=== PATIENT | female | born 1980 | race Caucasian/White ===

== ENCOUNTER 2025-04-20 09:22 | Outpatient (AMB) | payer BC, SELFPAY ==
--- NOTE | 2025-04-20 09:27 | MHC.OFFVIS ---
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 Aura included blurred vision, dizziness, nausea, and fogginess of mind. Pain used to be one sided or stabbing type but now it was all around the head like a pressure, 7-8/10, associated with dizziness and nausea. She is presenting with concerns regarding her medication management for peripheral neuropathy and the efficacy of her current treatment regimen. She reports sensory symptoms characterized by cold sensations and tingling in her extremities, which persisted even after adjusting to a lower medication dose. She has decided to take a break from the medication due to these side effects. Her headaches, which occur periodically, have become less frequent, with only two episodes reported in the last month. Effective management with sumatriptan has been noted, and she currently does not express an urgent need for an alternative headache treatment. The issues with her sumatriptan refill at the pharmacy have been addressed, and we will ensure the prescription is resent. She will continue with her existing treatment plan and is scheduled for a follow-up in six months, ensuring ongoing management of her conditions. [facility] Medical History (Updated 04/20/25 @ 09:31 by Hayden Nolasco MD) Migraine without aura Review of Systems Const Details: - Neurological: Reports tingling and cold sensations in fingers and toes; Reports headache; Denies additional neurological symptoms - General: Discussed prescriptions and pharmacy refill issues Physical Exam Neuro Other: Mental Status: Alert and oriented to person, place, and time. Normal attention. Normal spontaneous speech, fluency, and comprehension. No obvious issues with mood and memory. Affect is appropriate. Cranial Nerves: CN II: Visual melchor full to confrontation, visual acuity intact. CN III, IV, : Pupils equal, round, reactive to light and accommodation. Extraocular movements are normal. CN V: Facial sensation is normal. CN VII: Facial movements symmetrical. CN VIII: Hearing intact to bedside conversation is normal. CN IX, X: Palate elevates symmetrically. CN XI: Shoulder shrug and head turn symmetrical. CN XII: Tongue midline without atrophy or fasciculations. Extrapyramidal: Full facial expressions and blinking. No rigidity. Movements are appropriate with no tremor or abnormality. Speech: Normal; no dysarthria or tremor. Assessment & Plan Assessment & Plan (1) Migraine with aura, not intractable, without status migrainosus: Comment: Meds tried: Topiramate (side effects), propranolol (side effects), sumatriptan, Verapamil (side effects), amitryptiline Code(s): G43.109 - Migraine with aura, not intractable, without status migrainosus Category: Medical Plan Impression: Medications: Changed From sumatriptan succinate take 1 tab at onset of headache; if no relief may repeat 1 tab after at least 2 hrs; max = 4 tabs/24 hr PO To sumatriptan succinate 50 mg orally one a day as needed; 10 tabs 5RF 30 days Coding Level of Care Code Est Pt Level 4 (53272) Diagnoses Migraine with aura, not intractable, without status migrainosus G43.109
--- OUTSIDE RECORDS SUMMARY | 2025-04-20 10:05 | XMS_ITS | Clinical Summary ---
Author Organization [facility] Address [address] [address] Phone Care Team Providers Care [employer]sembler Name Role Phone Park Burk MD Primary Care Provider [phone] Allergies Active Allergy Reactions Criticality Noted Date Comments Fentanyl Anxiety,Fatigue,Feel ing Irritable,GI Upset,Hypotension,Mental Status Change,Nausea and/or Vomiting Low 05/08/2022 Pollen Extracts Fatigue,Headaches,Sneezing Low 03/2022 Medications cetirizine 10 mg/mL Soln 05/21/20 21 Active clobetasol (CLOBEX) 0.05 % shampoo Apply topically every other day. 03/01/20 22 Active TRULICITY 0.75 mg/0.5 mL subcutaneous injection INJECT 1 PEN SUBCUTANEOUSLY ONCE A WEEK DIRECTED 02/16/20 22 Active finasteride (PROSCAR) 5 mg tablet 03/15/20 20 Active lisinopril (PRINIVIL,ZESTRI L) 20 MG tablet Take 20 mg by mouth daily. 03/28/20 22 Active magnesium 250 mg Tab 09/01/19 22 Active metFORMIN (GLUCOPHAGE-XR) 500 MG 24 hr tablet Take 1,000 mg by mouth daily. 03/29/20 22 Active naproxen-diphenh ydrAMINE 220-25 mg Tab 03/05/20 22 Active pregabalin (LYRICA) 75 MG capsule 05/02/20 22 Active rosuvastatin (CRESTOR) 5 MG tablet Take 5 mg by mouth nightly at bedtime. 03/29/20 22 Active tiZANidine (ZANAFLEX) 2 MG tablet 05/02/20 22 Active turmeric/turmeri c ext/pepr ext (TURMERIC-TURMER IC EXT-PEPPER) 900-100-5 mg Cap 09/01/19 18 Active ZOLMitriptan (ZOMIG) 2.5 MG tablet TAKE 1 TABLET BY MOUTH DAILY NEEDED FOR MIGRAINE HEADACHE, MAY REPEAT DOSE AFTER 2 HOURS IF NEEDED. 03/06/20 22 Active Active Problems Problem Noted Date Diagnosed Date Elevated triglycerides with high cholesterol 03/2022 Migraine aura occurring with and without headach e 05/08/2022 High blood pressure 01/25/2022 Diabetes mellitus 10/21/2016 Social History Tobacco Use Types Packs/Day Years Used Date Smoking Tobacco: Never Assessed Education Answer Date Recorded Are you interested in more education? Not on alireza e 12/26/2022 Are you concerned about learning? Not on file 12/26/2022 No 12/26/2022 No 12/26/2022 Digital Access Answer Date Recorded No 01/28/2023 No 01/28/2023 Reliable internet access at home? Not on file 01/28/2023 Device with a working camera? Not on file Comments Unknown Sex and Gender Information Value Date Recorded Sex Assigned at Female 05/07/2022 12:03 PM EDT Legal Sex Female 8:47 AM EDT Gender Identity Female 05/07/2022 12:03 PM EDT Sexual Orientation Straight 05/07/2022 12 :03 PM EDT Last Filed Vital Signs Vital Sign Reading Time Taken Comments Blood Pressure - - Pulse - - Temperature - - Respiratory Rate - - Oxygen Saturation - - Inhaled Oxygen Concentration - - Weight 93.9 kg (207 lb) 05/08/2022 10:26 AM EDT Height 182.9 cm (6') 05/08/2022 10:26 AM EDT Body Mass Index 28.07 05/08/2022 10:26 AM EDT Plan of Treatment Health Maintenance Due Date Last Done Comments BLOOD PRESSURE 1979 HEMOGLOBIN A1C 1979 DEPRESSION SCREENING 1991 SMOKING Hx and SMOKELESS TOBACCO SCREENING 01/15/1992 HEPATITIS C SCREENING 1997 HIV ONE-TIME SCREENING (18-65 YEARS) 1997 PAP SMEAR 01/15/2000 MAMMOGRAM 2019 PNEUMOCOCCAL VACCINES (0-49 years) (2 of 2 - PCV) 02/02/2020 02/01/2019 DIABETIC EYE EXAM 05/08/2022 CREATININE LEVEL 12/05/2023 12/04/2022 POTASSIUM LEVEL 12/05/2023 12/04/2022 COLOGUARD 01/15/2024 COLONOSCOPY 01/15/2024 COLORECTAL CANCER SCREENING 01/15/2024 FIT TEST 01/15/2024 FOBT 01/15/2024 SIGMOIDOSCOPY 01/15/2024 VIRTUAL COLONOSCOPY 01/15/2024 COVID-19 VACCINE ( season) 2024 07/08/2022, 07/13/2021, 10/28/2020, Additional history exists Adult Td,Tdap Booster 02/01/2029 02/01/2019, 008 HEPATITIS A VACCINES Aged Out No long er eligible based on patient's age to complete this topic HIB VACCINES Aged Out No longer eligi ble based on patient's age to complete this topic MENINGOCOCCAL VACCINES (ACWY) Aged Out No longer eligible based on patient's age to complete this topic MENINGOCOCCAL VACCINES (B) Aged Out N o longer eligible based on patient's age to complete this topic Medical Devices Not on file Procedures Procedure Name Priority Date/Time Associated Diagnosis Comments BASIC METABOLIC PANEL Routine 12/04/2022 12:25 PM EDT Pre-operative clearance from Last 3 Months or Most Recently Relevant to Health Maintenance Results * Basic metabolic panel (12/04/2022 12:25 PM EDT) SODIUM 139 135 - 145 mmol/L [facility] POTASSIUM 4.3 3.4 - 5.0 mmol/L [facility] CHLORIDE 103 98 - 108 mmol/L [facility] CO2 24 23 - 32 mmol/L [facility] BUN 12 8 - 25 mg/dL [facility] CREATININE 0.73 0.60 - 1.50 mg/dL [facility] GLUCOSE 102 70 - 110 mg/dL [facility] CALCIUM 9.9 8.5 - 10.5 mg/dL [facility] EGFR 105 >59 mL/min/1.7 3m2 [facility] Comment:Estimated glomerular filtration rate calculated using the CKD-EPI refit equation. ANION GAP 12 3 - 17 mmol/L [facility] 12/04/2022 12:2 5 PM EDT 12/04/2022 1:35 PM EDT us Sukhjinder Quinones MD LAB BLOOD ORDERABLES Final Result [address] [id number] from Last 3 Months or Most Recently Relevant to Health Maintenance Insurance [employer] PPO [employer] PPO [employer] PPO C[employer] PPO [employer] PPO [employer] PPO [employer] P[employer] P[employer] PPO Care Teams [employer] Relationship Specialty Start Date End Date Park Burk MD PCP - General Internal Medicine 03/26/22 Additional Source Comments The information contained in this document represents components of the legal health record. It is not the complete legal health record.[facility]
== END 2025-04-20 09:35 | disposition home or self-care (01) ==
LOC: HO.HSM 09:22
PROVIDERS: PCP Internal Medicine; Referring Provider Internal Medicine; Visit Provider Psychiatry & Neurology Neurology
DX: G43.109 Migraine with aura, not intractable, without status migrainosus (principal)
CPT/HCPCS: 99214